=== PATIENT | female | born 1940 | race Caucasian/White ===

== ENCOUNTER 2021-07-03 09:40 | Day surgery (SDC) | payer MEDICARE, OTHER ==
[2021-07-03] MEDS ORDERED: BUPIVACAINE 0.5% VIAL IJ ONE (09:41)
[2021-07-03] MEDS ORDERED: Depo-Medrol 40 MG/ML IM ONE (09:41)
[2021-07-03] MEDS ORDERED: Lactated Ringers 1,000 ML IV ONE (11:24)
[2021-07-03] MEDS ORDERED: DIPRIVAN 200 MG/20 ML IV ONE (11:40)
--- NOTE | 2021-07-03 12:53 | XRAY ---
Indication: Right knee injection. Intraoperative fluoroscopy provided for 8 seconds. Single digital spot image submitted for interpretation demonstrates needle tip projecting over the right femur intercondylar notch. Small amount of contrast injected for needle tip placement. Correlate with intraoperative findings/report.
--- NOTE | 2021-07-03 12:56 | XRAY ---
8 seconds fluoroscopy time in surgery for intra-articular injection of the right knee.
== END 2021-07-03 11:57 | disposition home or self-care (01) ==
LOC: SDC-PAIN 09:40
PROVIDERS: ATTEND Psychiatry & Neurology Pain Medicine
DX: M17.11 Unilateral primary osteoarthritis, right knee (principal); I10 Essential (primary) hypertension; Z79.899 Other long term (current) drug therapy
CPT/HCPCS: 20610; 73560; 77002; J1030; J2704; Q9966

== ENCOUNTER 2021-11-13 15:03 | Day surgery (SDC) | payer MEDICARE, OTHER ==
[2021-11-13] MEDS ORDERED: Depo-Medrol 40 MG/ML IM ONE (15:04)
[2021-11-13] MEDS ORDERED: Marcaine Mpf 0.5% Vial 30 Ml IJ ONE (15:04)
[2021-11-13] MEDS ORDERED: DIPRIVAN 200 MG/20 ML IV ONE (16:42)
[2021-11-13] MEDS ORDERED: Lactated Ringers 1,000 ML IV ONE (17:43)
--- NOTE | 2021-11-13 19:43 | XRAY ---
Indication: Left knee injection. Intraoperative fluoroscopy provided for 2 seconds. Single digital spot image submitted for interpretation demonstrates needle tip projecting over the left femur intercondylar notch. Small amount of contrast injected for needle tip placement. Correlate with intraoperative findings/report.
--- NOTE | 2021-11-13 19:44 | XRAY ---
Indication: Right knee injection. Intraoperative fluoroscopy provided for 6 seconds. Single digital spot image submitted for interpretation demonstrates needle tip projecting over the right femur intercondylar notch. Small amount of contrast injected for needle tip placement. Correlate with intraoperative findings/report.
--- NOTE | 2021-11-14 08:42 | XRAY ---
2 seconds of fluoroscopy was used in surgery for a left knee intra-articular injection.
--- NOTE | 2021-11-14 08:43 | XRAY ---
6 seconds of fluoroscopy was used in surgery for a right knee intra-articular injection.
== END 2021-11-13 17:15 | disposition home or self-care (01) ==
LOC: SDC-PAIN 15:03
PROVIDERS: ATTEND Psychiatry & Neurology Pain Medicine
DX: M17.0 Bilateral primary osteoarthritis of knee (principal); E11.9 Type 2 diabetes mellitus without complications; Z79.899 Other long term (current) drug therapy
CPT/HCPCS: 20610; 73560; 77002; 82947; J1030; J2704; Q9966

== ENCOUNTER 2022-04-23 13:33 | Day surgery (SDC) | payer MEDICARE, OTHER ==
[2022-04-23] MEDS ORDERED: SYNVISC 16 MG/2 ML SYRINGE IU ONE (13:34)
[2022-04-23] MEDS ORDERED: LIDOCAINE HCL 1% 50 MG/5 ML VL PF IJ ONE (13:34)
[2022-04-23 13:51] LABS: POCT GLUCOSE 106 mg/dL (74 to 106)
[2022-04-23] MEDS ORDERED: DIPRIVAN 200 MG/20 ML IV ONE (15:17)
[2022-04-23] MEDS ORDERED: Lactated Ringers 1,000 ML IV ONE (15:53)
--- NOTE | 2022-04-23 16:30 | XRAY ---
2 seconds of fluoroscopy was used in surgery for a left intra-articular knee injection.
--- NOTE | 2022-04-23 16:30 | XRAY ---
8 seconds of fluoroscopy was used in surgery for a right intra-articular knee injection.
== END 2022-04-23 15:42 | disposition home or self-care (01) ==
LOC: SDC-PAIN 13:33
PROVIDERS: ATTEND Psychiatry & Neurology Pain Medicine
DX: M17.0 Bilateral primary osteoarthritis of knee (principal); Z79.899 Other long term (current) drug therapy
CPT/HCPCS: 20610; 73560; 77002; 82947; J2001; J2704; J7325; Q9966

== ENCOUNTER 2022-05-07 14:15 | Day surgery (SDC) | payer MEDICARE, OTHER ==
[2022-05-07] MEDS ORDERED: SYNVISC 16 MG/2 ML SYRINGE IU ONE (14:16)
[2022-05-07] MEDS ORDERED: DIPRIVAN 200 MG/20 ML IV ONE (16:08)
[2022-05-07] MEDS ORDERED: Lactated Ringers 1,000 ML IV ONE (16:58)
--- NOTE | 2022-05-07 17:02 | XRAY ---
Indication: Left knee injection. Intraoperative fluoroscopy provided for 5 seconds. Single digital spot image submitted for interpretation demonstrates needle tip projecting over the left femur intercondylar notch. Small amount of contrast injected for needle tip placement. Correlate with intraoperative findings/report.
--- NOTE | 2022-05-07 20:02 | XRAY ---
6 seconds of fluoroscopy was used in surgery for a right intra-articular knee injection.
--- NOTE | 2022-05-07 20:02 | XRAY ---
5 seconds of fluoroscopy was used in surgery for a left intra-articular knee injection.
== END 2022-05-07 16:40 | disposition home or self-care (01) ==
LOC: SDC-PAIN 14:15
PROVIDERS: ATTEND Psychiatry & Neurology Pain Medicine
DX: M17.0 Bilateral primary osteoarthritis of knee (principal); Z79.899 Other long term (current) drug therapy
CPT/HCPCS: 20610; 73560; 77002; 82947; J2704; J7325; Q9966

== ENCOUNTER 2022-05-14 15:27 | Day surgery (SDC) | payer MEDICARE, OTHER ==
[2022-05-14] MEDS ORDERED: SYNVISC 16 MG/2 ML SYRINGE IU ONE (15:28)
[2022-05-14] MEDS ORDERED: DIPRIVAN 200 MG/20 ML IV ONE (17:26)
[2022-05-14] MEDS ORDERED: Lactated Ringers 1,000 ML IV ONE (17:59)
--- NOTE | 2022-05-14 19:48 | XRAY ---
Indication: Right knee injection. Intraoperative fluoroscopy provided for 7 seconds. Single digital spot image submitted for interpretation demonstrates needle tip projecting over the right femur intercondylar notch. Small amount of contrast injected for needle tip placement. Correlate with intraoperative findings/report.
--- NOTE | 2022-05-14 19:48 | XRAY ---
Indication: Left knee injection. Intraoperative fluoroscopy provided for 8 seconds. Single digital spot image submitted for interpretation demonstrates needle tip projecting over the left femur intercondylar notch. Small amount of contrast injected for needle tip placement. Correlate with intraoperative findings/report.
--- NOTE | 2022-05-15 10:46 | XRAY ---
8 seconds fluoroscopy time in surgery for intra-articular injection of the left knee.
--- NOTE | 2022-05-15 10:46 | XRAY ---
7 seconds fluoroscopy time in surgery for intra-articular injection of the right knee.
== END 2022-05-14 18:00 | disposition home or self-care (01) ==
LOC: SDC-PAIN 15:27
PROVIDERS: ATTEND Psychiatry & Neurology Pain Medicine
DX: M17.0 Bilateral primary osteoarthritis of knee (principal)
CPT/HCPCS: 20610; 73560; 77002; J2704; J7325; Q9966

== ENCOUNTER 2023-01-14 14:39 | Day surgery (SDC) | payer MEDICARE, OTHER ==
[2023-01-14] MEDS ORDERED: BUPIVACAINE 0.5% VIAL IJ ONE (14:40)
[2023-01-14] MEDS ORDERED: Depo-Medrol 40 MG/ML IM ONE (14:40)
[2023-01-14] MEDS ORDERED: Lactated Ringers 1,000 ML IV ONE (17:44)
[2023-01-14] MEDS ORDERED: DIPRIVAN 200 MG/20 ML IV ONE (17:46)
--- NOTE | 2023-01-14 21:30 | XRAY ---
Indication: Left knee injection. Intraoperative fluoroscopy provided for 8 seconds. Single digital spot image submitted for interpretation demonstrates needle tip projecting over left femur intercondylar notch. Small amount of contrast injected for needle tip placement. Correlate with intraoperative findings/report.
--- NOTE | 2023-01-14 21:30 | XRAY ---
Indication: Right injection. Intraoperative fluoroscopy provided for 7 seconds. Single digital spot image submitted for interpretation demonstrates needle tip projecting over right femur intercondylar notch. Small amount of contrast injected for needle tip placement. Correlate with intraoperative findings/report.
--- NOTE | 2023-01-15 09:39 | XRAY ---
7 seconds of fluoroscopy was used in surgery for a right intra-articular knee injection.
--- NOTE | 2023-01-15 09:39 | XRAY ---
8 seconds of fluoroscopy was used in surgery for a left intra-articular knee injection.
== END 2023-01-14 18:15 | disposition home or self-care (01) ==
LOC: SDC-PAIN 14:39
PROVIDERS: ATTEND Psychiatry & Neurology Pain Medicine
DX: M17.0 Bilateral primary osteoarthritis of knee (principal)
CPT/HCPCS: 20610; 73560; 77002; J1030; J2704; Q9966

== ENCOUNTER 2023-06-17 10:52 | Day surgery (SDC) | payer MEDICARE, OTHER ==
[2023-06-17] MEDS ORDERED: BUPIVACAINE 0.5% VIAL IJ ONE (10:53)
[2023-06-17] MEDS ORDERED: DIPRIVAN 200 MG/20 ML IV ONE (14:30)
[2023-06-17] MEDS ORDERED: Lactated Ringers 1,000 ML IV ONE (15:03)
--- NOTE | 2023-06-17 16:44 | XRAY ---
Indication: Right knee genicular nerve block. Intraoperative fluoroscopy provided for 11 seconds. 2 digital spot images submitted for interpretation demonstrates anterior needle tips projecting medial/lateral supracondylar and medial tibial plateau. Correlate with intraoperative findings/report.
--- NOTE | 2023-06-17 16:47 | XRAY ---
11 seconds of fluoroscopy was used in surgery for a right genicular nerve block.
== END 2023-06-17 15:04 | disposition home or self-care (01) ==
LOC: SDC-PAIN 10:52
PROVIDERS: ATTEND Psychiatry & Neurology Pain Medicine
DX: M17.11 Unilateral primary osteoarthritis, right knee (principal)
CPT/HCPCS: 64454; 73560; 77002; J2704

== ENCOUNTER 2023-07-15 10:24 | Day surgery (SDC) | payer MEDICARE, OTHER ==
[2023-07-15] MEDS ORDERED: Depo-Medrol 40 MG/ML IM ONE (10:25)
[2023-07-15] MEDS ORDERED: BUPIVACAINE 0.5% VIAL IJ ONE (10:25)
[2023-07-15] MEDS ORDERED: LIDOCAINE HCL 1% 50 MG/5 ML VL PF IJ ONE (10:25)
[2023-07-15] MEDS ORDERED: Lactated Ringers 1,000 ML IV ONE (11:56)
[2023-07-15] MEDS ORDERED: DIPRIVAN 200 MG/20 ML IV ONE (12:03)
--- NOTE | 2023-07-15 13:10 | XRAY ---
Indication: Right knee genicular nerve ablation. Intraoperative fluoroscopy provided for 18 seconds. 3 digital spot image submitted for interpretation demonstrates anterior needle tips projecting medial/lateral subcondylar and medial tibial plateau. Correlate with intraoperative findings/report.
--- NOTE | 2023-07-15 15:16 | XRAY ---
18 seconds of fluoroscopy was used in surgery for a right genicular knee ablation.
== END 2023-07-15 12:40 | disposition home or self-care (01) ==
LOC: SDC-PAIN 10:24
PROVIDERS: ATTEND Psychiatry & Neurology Pain Medicine
DX: M17.11 Unilateral primary osteoarthritis, right knee (principal)
CPT/HCPCS: 64624; 73560; 77002; J1010; J2001; J2704; J1030